=== PATIENT | female | born 1995 | race Caucasian/White ===

== ENCOUNTER 2017-12-11 19:11 | Emergency (ER) | payer MEDICAID ==
[~2017-12-11] VITALS: Ht 167.6 cm; Wt 87.1 kg
[2017-12-11 19:47] VITALS: BP_SYST 134
--- NOTE | 2017-12-11 19:59 | NUR ---
Patient to ER bed 5 to gown for evaluation. Side rails up. Report given to Tanya.
--- NOTE | 2017-12-11 20:10 | NUR ---
Patient AOx4, ambulatory, presents to ER with complaint sore throat and difficulty swallowing x9 days. Patient states no fever or chills. No other symptoms or complaints at this time.
--- NOTE | 2017-12-11 20:12 | NUR ---
EL Leung at bedside for medical evaluation.
[2017-12-11] MEDS ORDERED: KETOROLAC TROMETHAMINE 60 MG/2 ML VIAL IM ONE (20:15)
[2017-12-11] MEDS ORDERED: DEXAMETHASONE SOD PHOSPHATE 10 MG/ML VIAL IM ONE (20:15)
[2017-12-11] MEDS ORDERED: PENICILLIN G BENZATHINE 1.2 MMU/2 ML SYR IM ONE (20:15)
[2017-12-11 20:44] LABS: INFLUENZA A&B ANTIGEN SCREEN NEGATIVE FOR A & B (NEGATIVE); STREPTOCOCCUS A SCREEN (RAPID) NEGATIVE (NEGATIVE)
[2017-12-11 21:00] VITALS: BP_SYST 128
--- NOTE | 2017-12-11 21:00 | NUR ---
Patient given written and verbal discharge instructions and verbalizes understanding. ER MD discussed with patient the results and treatment provided. Patient in stable condition. ID arm band removed. Rx of Prednisone and Motrin given. Patient educated on pain management and to follow up with PMD. Pain Scale 2/10 tolerable to patient. Opportunity for questions provided and answered.
--- NOTE | 2017-12-11 21:00 | NUR ---
No adverse reactions noted after medication adminstration. Will continue to monitor.
== END 2017-12-11 21:00 | disposition home or self-care (01) ==
LOC: SED 19:11
DX: J02.9 Acute pharyngitis, unspecified (principal)
CPT/HCPCS: 36415; 81025; 86403; 86710; 87081; 96372; 99285; J0561; J1100; J1885

== ENCOUNTER 2018-01-29 21:58 | Emergency (ER) | payer MEDICAID ==
[~2018-01-29] VITALS: Ht 167.6 cm; Wt 81.6 kg
[2018-01-29 22:08] VITALS: BP_SYST 134
[2018-01-29] MEDS ORDERED: KETOROLAC TROMETHAMINE 60 MG/2 ML VIAL IM ONE (23:00)
[2018-01-29] MEDS ORDERED: AMOXICILLIN 500 MG CAPSULE PO ONE (23:00)
[2018-01-29 23:14] VITALS: BP_SYST 124
== END 2018-01-29 23:14 | disposition home or self-care (01) ==
LOC: SED 21:58
DX: K04.7 Periapical abscess without sinus (principal)
CPT/HCPCS: 81025; 96372; 99283; J1885

== ENCOUNTER 2018-12-04 23:32 | Emergency (ER) | payer MEDICAID ==
[~2018-12-04] VITALS: Ht 170.2 cm; Wt 81.6 kg
--- NOTE | 2018-12-04 23:34 | NUR ---
Patient to ER bed 6 to gown for evaluation. Side rails up. Report given to ERIKA DUNLAP.
[2018-12-04 23:35] VITALS: BP_SYST 138
--- NOTE | 2018-12-04 23:40 | NUR ---
Patient to ER via triage for evaluation of lower abdominal muscle pain s/p stretching this evening. Patient denies nausea, vomiting, diarrhea. Patient is awake, alert and oriented in no acute distress, vital signs stable, respirations even and unlabored, skin warm and dry to touch. Patient able to ambulate to bed 6 without difficulty with slow, steady gait. Patient's friend at bedside. Awaiting evaluation by ER MD, will continue to observe and assess.
--- NOTE | 2018-12-05 00:09 | NUR ---
ER at bedside examining patient.
[2018-12-05 00:29] VITALS: BP_SYST 129
--- NOTE | 2018-12-05 00:29 | NUR ---
Patient given written and verbal discharge instructions and verbalizes understanding. ER MD discussed with patient the results and treatment provided. Patient in stable condition. ID arm band removed. No Rx given. Patient educated on pain management and to follow up with PMD. Pain Scale 0. Opportunity for questions provided and answered. Medication side effect fact sheet provided.
== END 2018-12-05 00:29 | disposition home or self-care (01) ==
LOC: SED 23:32
DX: S39.011A Strain of muscle, fascia and tendon of abdomen, initial encounter (principal); X58.XXXA Exposure to other specified factors, initial encounter; Y93.89 Activity, other specified; Y92.89 Other specified places as the place of occurrence of the external cause; Y99.8 Other external cause status
CPT/HCPCS: 99281

== ENCOUNTER 2019-05-31 12:38 | Emergency (ER) | payer MEDICAID ==
[~2019-05-31] VITALS: Ht 167.6 cm; Wt 90.7 kg
[2019-05-31 12:43] VITALS: BP_SYST 136
--- NOTE | 2019-05-31 12:50 | NUR ---
Patient to ER bed 2 to gown for evaluation. Side rails up. Report given to Haley DUNLAP .
--- NOTE | 2019-05-31 12:55 | NUR ---
Patient presented to ER with C/O left anterior lower leg pain, increased pain with compression of fibula. Patient A&Ox4, ambulatory to ER, skin pink, abrasion to left anterior lower leg, bilat pedal pulses WNL, pain 9/10, denies N/V/D. Patiet states she was "moving dorms" when she fell down most of a flight of stairs at 0700 today. patient states she continued to move items and ambulate. Now the pain is too sever, per patient prompting ER visit. Patient states she has a hx of depression and taked 100 mg Zoloft daily.
--- NOTE | 2019-05-31 12:58 | NUR ---
ER Dr. Thomas at bedside examining patient.
--- NOTE | 2019-05-31 13:10 | NUR ---
Radiology at bedside for portable x-ray.
[2019-05-31] MEDS ORDERED: BACITRACIN 1 GM OINT TP ONE (14:00)
[2019-05-31] MEDS ORDERED: IBUPROFEN 800 MG TABLET PO ONE (14:00)
[2019-05-31 14:05] VITALS: BP_SYST 136
--- NOTE | 2019-05-31 14:05 | NUR ---
Patient given written and verbal discharge instructions and verbalizes understanding. ER MD discussed with patient the results and treatment provided. Patient in stable condition. ID arm band removed. Rx of Motrin given. Patient educated on pain management and to follow up with PMD. Pain Scale 7/10. Opportunity for questions provided and answered. Medication side effect fact sheet provided.
== END 2019-05-31 14:05 | disposition home or self-care (01) ==
LOC: SED 12:38
DX: S80.12XA Contusion of left lower leg, initial encounter (principal); J45.909 Unspecified asthma, uncomplicated; W10.9XXA Fall (on) (from) unspecified stairs and steps, initial encounter; Y93.89 Activity, other specified; Y92.89 Other specified places as the place of occurrence of the external cause; Y99.8 Other external cause status
CPT/HCPCS: 73590-TC; 81025; 99283

== ENCOUNTER 2019-08-27 13:02 | Emergency (ER) | payer MEDICAID ==
[~2019-08-27] VITALS: Ht 167.6 cm; Wt 90.7 kg
[2019-08-27 13:23] VITALS: BP_SYST 130
[2019-08-27] MEDS ORDERED: IPRATROPIUM/ALBUTEROL SULFATE 3 ML AMPUL.NEB (DUONEB) INH ONE (13:30)
[2019-08-27 14:03] VITALS: BP_SYST 124
== END 2019-08-27 14:03 | disposition home or self-care (01) ==
LOC: SED 13:02
DX: J06.9 Acute upper respiratory infection, unspecified (principal); R03.0 Elevated blood-pressure reading, without diagnosis of hypertension; J45.909 Unspecified asthma, uncomplicated
CPT/HCPCS: 81025; 94640; 99283; J7620

== ENCOUNTER 2020-01-11 17:48 | Emergency (ER) | payer MEDICAID ==
[~2020-01-11] VITALS: Ht 167.6 cm; Wt 86.2 kg
[2020-01-11 20:24] VITALS: BP_SYST 135
[2020-01-11 20:28] LABS: BASOPHILS % (AUTO) 0.4 % (0.0-2.0); EOSINOPHILS # (AUTO) 0.1 K/uL (0.0-0.4); EOSINOPHILS % (AUTO) 0.8 % (0.0-4.0); HEMATOCRIT 35.9 % (36-48); LYMPHOCYTES # (AUTO) 2.1 K/uL (1.0-5.5); LYMPHOCYTES % (AUTO) 28.9 % (20.5-51.5); MEAN CORPUSCULAR HEMOGLOBIN 31 pg (27-31); MEAN CORPUSCULAR HGB CONC 33 % (32-36); MEAN CORPUSCULAR VOLUME 93 fL (79.0-98.0); MONOCYTES # (AUTO) 0.5 K/uL (0.0-1.0); MONOCYTES % (AUTO) 7.3 % (1.7-9.3); NEUTROPHILS # (AUTO) 4.6 K/uL (1.8-7.7); NEUTROPHILS % (AUTO) 62.6 % (40.0-70.0); PLATELET COUNT (AUTO) 261 K/uL (130-430); RED BLOOD CELL COUNT(AUTO) 3.85 MIL/uL (4.2-6.2); RED CELL DISTRIBUTION WIDTH 13.3 % (9.0-15.0); WHITE BLOOD COUNT (AUTO) 7.3 K/uL (4.8-10.8)
--- NOTE | 2020-01-11 20:30 | NUR ---
PATIENT TO WAITING ROOM STABLE AND UNCHANGED
[2020-01-11 20:40] LABS: CALCIUM 8.5 mg/dL (8.4-11.0); CREATININE 0.57 mg/dL (0.55-1.30); POTASSIUM 3.9 mmol/L (3.5-5.1)
[2020-01-11 21:00] LABS: BILIRUBIN,URINE NEGATIVE (NEGATIVE); CLARITY/URINE CLEAR (CLEAR); COLOR,URINE YELLOW (YELLOW); GLUCOSE,URINE NEGATIVE (NEGATIVE); KETONES,URINE NEGATIVE (NEGATIVE); LEUKOCYTE ESTERASE ,URINE NEGATIVE (NEGATIVE); NITRITE, URINE NEGATIVE (NEGATIVE); PROTEIN URINE NEGATIVE (NEGATIVE); UROBILINOGEN,URINE 0.2 (0.2-1.0)
[2020-01-11 21:07] LABS: BLOOD, URINE TRACE (NEGATIVE)
[2020-01-11 21:08] LABS: BACTERIA,URINE FEW /HPF (None Seen); RBC,URINE NONE SEEN /HPF (0-3); WBC,URINE 0-3 /HPF (0-3)
[2020-01-11 21:09] LABS: MUCUS,URINE None Seen /LPF (None Seen)
--- NOTE | 2020-01-11 21:58 | NUR ---
Pt ambulatory to bed 3 for evaluation
--- NOTE | 2020-01-11 22:00 | NUR ---
Pt brought in by partner to ED. Pt is awake, alert, oriented x4. Pt ambulates with steady gait. Pt states that approx 4pm today she started having mild vaginal bleeding when wiping. pt states blood started as minimal and light pink, followed by darker/brownish blood. Pt states she has also had mild cramping for the past few days. Pt denies chest pain, nausea, vomiting, diarrhea, shortness of breath, any other medical complaint at this time. Pt states this is her first and she is approx 6 weeks per pt. VSS
[2020-01-11 22:10] LABS: ALBUMIN 3.8 g/dL (3.4-4.8); TOTAL BILIRUBIN 0.2 mg/dL (0.0-1.0)
--- NOTE | 2020-01-11 22:14 | NUR ---
EL Wei at bedside examining patient.
[2020-01-11 22:35] VITALS: BP_SYST 130
--- NOTE | 2020-01-11 22:35 | NUR ---
Patient given written and verbal discharge instructions and verbalizes understanding. ER MD discussed with patient the results and treatment provided. Patient in stable condition. ID arm band removed. No IV Rx of Zofran given. Patient educated on pain management and to follow up with PMD. Pain Scale 0/10. Opportunity for questions provided and answered. Medication side effect fact sheet provided.
== END 2020-01-11 22:35 | disposition home or self-care (01) ==
LOC: SED 17:48
DX: O20.0 Threatened abortion (principal); O20.9 Hemorrhage in early pregnancy, unspecified; O26.891 Other specified pregnancy related conditions, first trimester; J45.909 Unspecified asthma, uncomplicated; Z3A.01 Less than 8 weeks gestation of pregnancy; Z91.018 Allergy to other foods
CPT/HCPCS: 36415; 76830-TC; 76857; 80053; 81000-TC; 84702-TC; 85025; 86900; 86901; 99284

== ENCOUNTER 2020-01-13 10:05 | Emergency (ER) | payer MEDICAID ==
[~2020-01-13] VITALS: Ht 167.6 cm; Wt 86.2 kg
[2020-01-13 10:34] VITALS: BP_SYST 154
--- NOTE | 2020-01-13 10:34 | NUR ---
Patient to ER bed 2 to gown for evaluation. Side rails up.
--- NOTE | 2020-01-13 10:45 | NUR ---
PT CAME TO ER TO FOLLOW UP ON HCG TEST. THREATENED MISCARRIAGE.
--- NOTE | 2020-01-13 11:10 | NUR ---
MD EL Carrillo at bedside examining patient.
--- NOTE | 2020-01-13 12:00 | NUR ---
PT RESTING IN [facility] COMFORTABLY AT THIS TIME AWAITING LAB RESULTS.
[2020-01-13 13:25] VITALS: BP_SYST 102
--- NOTE | 2020-01-13 13:25 | NUR ---
Patient given written and verbal discharge instructions and verbalizes understanding. ER MD discussed with patient the results and treatment provided. Patient in stable condition. ID arm band removed. Patient educated on pain management and to follow up with PMD. Pain Scale 0. Opportunity for questions provided and answered. Medication side effect fact sheet provided.
== END 2020-01-13 13:25 | disposition home or self-care (01) ==
LOC: SED 10:05
DX: O20.0 Threatened abortion (principal); J45.909 Unspecified asthma, uncomplicated; Z91.018 Allergy to other foods; Z88.8 Allergy status to other drugs, medicaments and biological substances; Z3A.01 Less than 8 weeks gestation of pregnancy
CPT/HCPCS: 36415; 84702-TC; 99283